=== PATIENT | male | born 1950 | race Caucasian/White ===

== ENCOUNTER 2022-07-15 18:28 | Emergency (ER) | payer MEDICARE, OTHER ==
[~2022-07-15] VITALS: Ht 170.2 cm; Wt 89.6 kg
[2022-07-15] MEDS ORDERED: MORPHINE SULFATE INJ 2 MG/ML DISP.SYRIN ONE (19:52)
[2022-07-15] MEDS ORDERED: ACETAMINOPHEN ES 500 MG TABLET ONE (19:52)
[2022-07-15] MEDS ORDERED: ACETAMINOPHEN ES 500 MG TABLET PO ONE (20:00)
[2022-07-15] MEDS ORDERED: MORPHINE SULFATE INJ 2 MG/ML DISP.SYRIN IV ONE (20:00)
--- NOTE | 2022-07-15 20:00 | NUR ---
SECURED IV ACCESS ON R AC#20 INTACT AND FLUSHING WELL.
--- NOTE | 2022-07-15 20:05 | NUR ---
PATIENT SENT TO RADIOLOGY FOR CT.
[2022-07-15] MEDS ORDERED: KETO10TA2 PO (21:47)
[2022-07-15] MEDS ORDERED: CYCL5TAB PO (21:47)
--- NOTE | 2022-07-15 22:04 | NUR ---
Patient discharged to home in stable condition. Written and verbal after care instructions given. Patient verbalizes understanding of instruction. IV removed. Catheter intact and site benign. Pressure and 4x4 applied to site. No bleeding noted.
[2022-07-15 22:38] VITALS: BP 121/78
== END 2022-07-15 22:30 | disposition home or self-care (01) ==
LOC: ER 19:53
DX: M54.50 Low back pain, unspecified (principal); M54.2 Cervicalgia; I10 Essential (primary) hypertension; E11.9 Type 2 diabetes mellitus without complications; Z79.899 Other long term (current) drug therapy; V89.2XXA Person injured in unspecified motor-vehicle accident, traffic, initial encounter; Y93.89 Activity, other specified; Y92.89 Other specified places as the place of occurrence of the external cause; Y99.8 Other external cause status
CPT/HCPCS: 99285; 72125; 96374; 71045; 70450; 72131; J2270